=== PATIENT | female | born 1965 | race Caucasian/White ===

== ENCOUNTER 2017-10-26 08:58 | Observation (INO) | payer OTHER ==
--- NOTE | 2017-10-25 20:55 | PDGENHP ---
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 ~Angelenjoys cycling and walking. Sandra's~right~hip pain~started November 2016 after falling onto her right buttock, with~no~previous complaints. Angelhas~a known history of hip dysplasia. Sandra was referred by Dr. Mejia. Presentation today is of~anterior, posterior~right~hip pain.~~The hip~does~wake her~at night and~does~click and catch on her. Sitting~can be a real struggle~ for her.~Angeldoes not~report suffering from lower back pain episodes. Angelhas~participated in physical therapy (November-March 2017)~and has~ tried other conservative measures including cortisone~hip injection~(March 2017: no immediate relief, couple of weeks of relief)~, chiropractic treatments and massage therapy.~Kassi~has not~received sufficient symptomatic improvement. Angelhas~utilized medication for pain management, including intermittent~ NSAID and OTC acetaminophen.~Angelhas used medication since the pain began. Angeldenies issues with the left~hip. ~ Angelunderstands that she~has a hip and pelvis problem which should be researched and wishes to get a better understanding of her~hip status, followed by an establishment of a treatment strategy, hoping she~would be able to get back to her~well being active life. History: Past medical history:~~ MTHFR: a blood clotting disorder. Relevant familial history:~Grandmother, mother, sister clotting disorders. Past surgical history:~ No. Surgery Anesthesia 1 Left knee scope general 2 Left knee manipulation general 3 Left saphninous nerve release general Angeldenies problematic issues with general anesthesia in the past. I have reviewed, verified and agree with the past medical, surgical, family and social history. Current Medications:~has a current medication list which includes the following prescription(s): gabapentin, orlistat, loratadine, and naproxen sodium. ALLERGIES:~is allergic to no known drug allergies. Objective: Physical Examination: Angelis 5~feet 8~inches tall and weighs 175~Lbs. Angelis AAO x3; she~is well -nourished, in NAD. Skin is warm and dry. ~Breathing is non-labored. ~CV with RRR by pulse. Abdomen is soft, NTND. Currently,~she~walks with a normal~gait. Trendelenburg sign is~negative~and proprioception is reduced,~both~sides. She~presents with mild~signs of joint laxity. Beightons Score:~4 (knees and thumbs) Lower spine examination is~negative~for sciatic or femoral nerve irritation with negative~SLR &~femoral stretch tests. Range of motion of the spine is normal~for flexion, extension, and rotations, with~associated pain. Strength, Sensation and pulses are~normal -~bilaterally Ankles and knees exams are~normal~and no~mal-alignment is evident. She~has~right~0.5~cm short leg length discrepancy. Thigh circumference is~symmetric~with no evidence for muscle atrophy~on both~ sides. Hip ROM (degrees): FL ER At 90~hip FL IR At 90~hip FL AB AD EX IR Neutral hip ER Neutral hip R 110 55 50 40 5 10 55 20 L 110 50 40 40 5 20 55 30 Specific hip and pelvis tests: Impingement Test PAPITO Roll Add. Longus R +++ +++ + +++ L Negative Negative Negative Negative Glut. Med ITB Posterior Imp R Negative 5/5 strength Negative 5/5 strength Negative L Negative 5/5 strength Negative 5/5 strength Negative Squeeze test measured~normal Bony Symphysis pubis is~pain free~to touch while concentric activity of the rectus abdominis, does not~produce pain at its insertion. Ilio Psos specific tests are~positive for pain during cycling for~the right hip~ and remarkable for painful snap HF has~weak, some pain~the right hip. R posterior~capsule tenderness Greater trochanteric burse is~painful~on the right hip. Piriformis tests: FAIR is~negative,~with no~local signs of neuritis related to sciatic nerve. SIJs examination is~produces pain on~right side~with normal~PAPITO in relation and local tenderness. Hamstrings tests are~negative~functional contraction and negative~tendinopathy both hips. On a daily basis, the following percentages reflect~Sandra's overall total pain: Deep hip:~60% R GT:~10% R SIJ:~30% Imaging: Radiology studies which I have personally reviewed, analyzed and measured are below: XR: AP of the hip and pelvis: Performed in a~good~technique Coccyx to pubic symphysis distance~1.5~cm. 0~degrees [place] Lines are~preserved. Minimal~Pathological signs are seen in the Symphysis Pubis. Minimal~Pathological signs are seen at the Ischial tuberosity. ~ Specific measurements show: NSA~ LCE Sourcil~Angle Sharp's angle Lat. Cam Lat. Pincer C.Over~sign Head~Coverage % ATDmm R N 29 7 44 + - - 84 N L N 29 8 42 + - - 84 N Pos. wall sign ISS NAD ~~Dysplasia Comments R Negative Negative 27~mm + L Negative Negative 21~mm Negative Sclerosis Sup. Lat. OA Cysts Joint Space-WBZ Joint Space-Medial R Negative Negative Negative 4.8~mm 5.0~mm L Negative Negative Negative 5.1~mm 4.5~mm X Table lateral: Anterior cam lesion is~seen~on both hips. Alpha Angle: ~ Right~60~dergrees Left~55~degrees CT / 3D:~ MEASUREMENTS: Right hip: Lateral center edge angle: 30 degrees Anterior center edge angle: 44 degrees Equatorial acetabular version angle: 29 degrees Cranial acetabular version angle: 24 degrees Femoral neck shaft angle: 138 degrees Femoral neck version angle: 24 degrees anteverted. Right femoral torsion measures 48 degrees. COTAV - 77 Left hip: Lateral center edge angle: 31 degrees Anterior center edge angle: 49 degrees Equatorial acetabular version angle: 25 degrees Cranial acetabular version angle: 23 degrees Femoral neck shaft angle: 139 degrees Femoral neck version angle: 28 degrees. Left femoral torsion measures 38 degrees. MRI shows:~good cartilage quality, labral tear, no bone edema or cysts Impression and plan:~ Angelis a 52 y.o.~active female~suffering from symptomatic Right~hip pain due to Femoral~Antetorsion,~Femoroacetabular impingement (MARTHA)~Cam type,~with~ resultant labral tear, and~Right~Hip anterior under-coverage~~causing significant disability to~her~and altering her~sport and life activities. Physical examination, imaging, and~her~story correspond with the diagnosis mentioned above. I explained that femoral malrotation is a condition wherein the hip joint has excessive play~and instability due to the orientation of the femur bone or where the femur bone is rotated towards the back of the hip socket resulting in additional impingement pathology. This pathology ranges in severity with treatment options being specific to the nature of the problem. Left untreated, the ante-torsion related instability or the retro-torsion related impingement in the hip joint can cause progressive tearing of the labrum and deterioration of the surface cartilage, ultimately resulting in progressive osteoarthritis of the hip. ~ I explained that femoroacetabular impingement (MARTHA - Cam type) arises due to a bony or soft tissue conflict between the femur (ball) and acetabulum (socket) caused by an abnormality in the shape of the femoral head and neck. Over time, repetitive impingement can result in damage to the labrum and adjacent surface cartilage within the socket, ultimately giving rise to progressive osteoarthritis of the hip. ~ I explained that although a labral tear can be a source of pain, it is rarely the root of the problem and typically occurs secondary to an underlying abnormality in the shape and mechanics of the hip joint. ~ I reviewed conservative treatment options for Femoral malrotation and MARTHA including activity modification to avoid positions of impingement or instability , physical therapy, non-steroidal anti-inflammatory medications, and various injections (corticosteroid and PRP) aimed at reducing inflammation in the hip joint or/and preventing dynamic instability and impingement. PRP injections may promote healing and reduce symptoms in certain cases but it will not repair chronically damaged tissue. Although these measures may help to buy time~and reduce current level of symptoms, they are not a definitive solution to the problem given the underlying abnormality in the shape of the hip joint. ~ Patients who have failed conservative management and continue to experience symptoms are candidates for definitive surgical treatment, which may consist of hip arthroscopy alone or in combination with more invasive bony realignment procedures of the femur called derotational femoral osteotomy (DFO), where the femur bone is rotated to the normal anatomical range. ~ Hip arthroscopy typically includes treating the labrum with either repair or reconstruction of the torn labrum; as well as addressing the underlying abnormalities by restoring the normal shape to the hip joint. If the cartilage is damaged a Microfracture surgical procedure may also be necessary to help stimulate the growth of fibrocartilage. If a patient requires a labral reconstruction or a microfracture, the initial rehabilitation from the surgery may take longer, but the access registrar results are typically favorable. I reviewed the technical aspects of derotational femoral osteotomy (DFO) including risks, benefits, and expected course of recovery.~Angelunderstands that DFO is a minimally invasive inpatient procedure carried out through a small incision on the outer aspects of the hip joint. The femur bone is cut, realigned, and stabilized with a matthias. Risks, potential complications, side effects and recovery from surgical procedure were discussed in length.~Sandra~ understands that he/she will undergo hip arthroscopy 1 week prior to the DFO to address damage inside the hip joint to include labral repair and correction of Hip impingement. Angelwill review the info presented. Sandra will schedule with Dr. Mejia for a hip arthroscopy and followed a week later a Derotational Femoral Osteotomy~with us. At this stage, although she has moderate anterior acetabular under-coverage I believe that femoral osteotomy would be sufficient without a need for a JAVAN in addition to the DFO. Angelwill contact us if she~wishes to pursue further treatment in the future. Angelis happy with this plan. I have also supplied~her~with handouts, outlining the expected surgical treatment and rehab involved. I wish~Angelall the best, ~~ BRODY Mclean History Information - Allergies/Home Medication List Allergies/Adverse Reactions: No Known Allergies Allergy (Unverified 10/08/17 15:12) Home Medications: Adult One Daily Multivit Tab 10/08/17 [Last Taken Unknown] Claritin-D 24 Hour Tablet 10/08/17 [Last Taken Unknown] Gabapentin 10/08/17 [Last Taken Unknown] Lutein/Zeaxanthin 10/08/17 [Last Taken Unknown] I have personally reviewed and updated: medical history - Social History Smoking Status: Never smoked Review of Systems Review of Systems: Physical Exam Physical Exam:
[2017-10-26] MEDS ORDERED: PREGABALIN 150 MG CAP PO ONE (09:01)
[2017-10-26] MEDS ORDERED: ceFAZolin 2 GM/DEXTROSE 100 ML IV ONE (09:01)
[2017-10-26] MEDS ORDERED: ACETAMINOPHEN 500 MG TAB PO ONE (09:01)
[2017-10-26] MEDS ORDERED: EPINEPHrine 30 MG/30 ML MDV (0.1 MG/0.1 ML) ONE (09:02)
[2017-10-26] MEDS ORDERED: LR 1,000 ML IV ONE (09:02)
[2017-10-26] MEDS ORDERED: LIDOCAINE 1% 2 ML INJ ID PRN (09:02)
[2017-10-26] MEDS ORDERED: BUPIVACAINE 0.25% 30 ML SDV ONE (09:02)
[2017-10-26] MEDS ORDERED: MIDAZOLAM 2 MG/2 ML VIAL IVP ONE (09:38)
[2017-10-26] MEDS ORDERED: MIDAZOLAM 2 MG/2 ML VIAL ONE (09:39)
--- NOTE | 2017-10-26 09:39 | PDANEPAE ---
ANE Past Medical History - Cardiovascular History Hx Hypertension: No Hx Arrhythmias: No Hx Chest Pain: No Hx Coronary Artery / Peripheral Vascular Disease: No Hx CHF / Valvular Disease: No Hx Palpitations: No - Pulmonary History Hx COPD: No Hx Asthma/Reactive Airway Disease: No Hx Recent Upper Respiratory Infection: No Hx Oxygen in Use at Home: No Hx Sleep Apnea: No Sleep Apnea Screening Result - Last Documented: Negative Pulmonary History Comment: ASTHMA - CHILDHOOD - Neurologic History Hx Cerebrovascular Accident: No Hx Seizures: No Hx Dementia: No Neurologic History Comment: Nerve damage LLE after left knee scope. Has had saphenous nerve release but still has numbness, tingling, pain. Gabapentin helps. - Endocrine History Hx Diabetes: No - Renal History Hx Renal Disorders: No - Liver History Hx Hepatic Disorders: No - Neurological & Psychiatric Hx Hx Neurological and Psychiatric Disorders: No - Cancer History Hx Cancer: No - Congenital Disorder History Hx Congenital Disorders: No - GI History Hx Gastrointestinal Disorders: No - Other Health History Other Health History: NEG - Chronic Pain History Chronic Pain: Yes (L KNEE & LEG, R HIP) - Surgical History Prior Surgeries: TONSILLECTOMY. HYSTERECTOMY. L KNEE SCOPE. KNEE MANIPULATION. SAPHENOUS NERVE RELEASE ANE Review of Systems Review of Systems: - Exercise capacity METS (RN): 4 METS ANE Patient History - Allergies Allergies/Adverse Reactions: No Known Allergies Allergy (Unverified 10/08/17 15:12) - Home Medications Home Medications: Adult One Daily Multivit Tab 10/08/17 [Last Taken 10/20/17] Claritin-D 24 Hour Tablet 10/08/17 [Last Taken 10/26/17 07:00] Gabapentin 10/08/17 [Last Taken 10/26/17 07:00] Lutein/Zeaxanthin 10/08/17 [Last Taken 10/20/17] - NPO status NPO Since - Liquids (Date): 10/26/17 NPO Since - Liquids (Time): 07:15 NPO Since - Solids (Date): 10/25/17 NPO Since - Solids (Time): 17:00 - Smoking Hx Smoking Status: Never smoked - Family Anes Hx Family Hx Anesthesia Complications: none ANE Labs/Vital Signs - Vital Signs Height: 172.72 cm Weight: 79.379 kg ANE Physical Exam - Airway Neck exam: FROM Mallampati Score: Class 2 Mouth exam: normal dental/mouth exam - Pulmonary Pulmonary: no respiratory distress - Cardiovascular Cardiovascular: regular rate and rhythym - ASA Status ASA Status: II ANE Anesthesia Plan Anesthesia Plan: general endotracheal anesthesia
[2017-10-26] MEDS ORDERED: fentaNYL 250 MCG/5 ML INJ ONE (09:51)
[2017-10-26] MEDS ORDERED: PROPOFOL 200 MG/20 ML VIAL ONE (09:52)
[2017-10-26] MEDS ORDERED: ROCURONIUM 50 MG/5 ML VIAL ONE ×2 (13:20)
[2017-10-26] MEDS ORDERED: ONDANSETRON 4 MG/2 ML VIAL ONE (13:20)
[2017-10-26] MEDS ORDERED: DEXAMETHASONE 4 MG/ML VIAL ONE (13:21)
[2017-10-26] MEDS ORDERED: LIDOCAINE 2% 2 ML INJ ONE (13:21)
[2017-10-26] MEDS ORDERED: GLYCOPYRROLATE 0.2 MG/1 ML VIAL ONE ×2 (14:50)
[2017-10-26] MEDS ORDERED: NEOSTIGMINE METHYLSULFATE 5 MG/5 ML SYR ONE (14:50)
[2017-10-26] MEDS ORDERED: HYDROCODONE/APAP 5/325 TAB PO PRN (15:30)
[2017-10-26] MEDS ORDERED: PROMETHAZINE HCL 25 MG/ML INJ IVP PRN ×2 (15:30→17:30)
[2017-10-26] MEDS ORDERED: LR 500 ML IV PRN (15:30)
[2017-10-26] MEDS ORDERED: NALOXONE HCL 0.4 MG/ML INJ IVP PRN (15:30)
[2017-10-26] MEDS ORDERED: fentaNYL 100 MCG/2 ML INJ IVP PRN (15:30)
--- NOTE | 2017-10-26 15:31 | POSTANESTH ---
Post Anesthetic Evaluation Cardiovascular Status: Normal, Stable Respiratory Status: Normal, Stable Level of Consciousness/Mental Status: Can Participate in Eval Pain Control: Adequate, Prn Tx Ordered Nausea/Vomiting Control: Adequate, Prn Tx Ordered Complications Possibly Related to Anesthesia: None Noted
[2017-10-26] MEDS ORDERED: fentaNYL 100 MCG/2 ML INJ ONE (15:34)
[2017-10-26] MEDS ORDERED: HYDROCODONE/APAP 5/325 TAB ONE (16:25)
[2017-10-26] MEDS ORDERED: TEMAZEPAM 15 MG CAP PO PRN (17:30)
[2017-10-26] MEDS ORDERED: KETOROLAC 15 MG/1 ML SDV IVP ONE (17:30)
[2017-10-26] MEDS ORDERED: ONDANSETRON 4 MG/2 ML VIAL IVP PRN (17:30)
[2017-10-26] MEDS ORDERED: ONDANSETRON DISINTEGRATING 4 MG TAB PO PRN (17:30)
[2017-10-26] MEDS ORDERED: HYDROmorphONE/DILAUDID 1 MG/ML INJ IVP PRN (17:30)
[2017-10-26] MEDS ORDERED: KETOROLAC 15 MG/1 ML SDV ONE (17:38)
[2017-10-26] MEDS: oxyCODONE IR 5 MG TAB PO PRN ×2 (18:44→23:25)
[2017-10-26] MEDS: HYDROmorphone HCL 0.5 MG/0.5 ML SYR IVP PRN (21:07)
[2017-10-27] MEDS: HYDROmorphone HCL 0.5 MG/0.5 ML SYR IVP PRN ×3 (01:08→06:31)
[2017-10-27] MEDS: oxyCODONE IR 5 MG TAB PO PRN ×3 (03:30→12:03)
[2017-10-27 07:55] VITALS: BP 113/77
== END 2017-10-27 12:52 | disposition home or self-care (01) ==
LOC: FSGY 08:58 → F3E 17:30 → F3N 18:00
PROVIDERS: ADMIT Orthopaedic Surgery Sports Medicine; ATTEND Orthopaedic Surgery Sports Medicine
DX: M25.851 Other specified joint disorders, right hip (principal); M25.852 Other specified joint disorders, left hip; Q65.89 Other specified congenital deformities of hip; E72.12 Methylenetetrahydrofolate reductase deficiency
CPT/HCPCS: 29914; 29916; 76001; G0378; C1713; J0171; J0690; J1100; J1170; J1885; J2250; J2405; J2704; J2710; J3010

== ENCOUNTER 2017-11-02 09:16 | Inpatient (IN) | payer OTHER ==
--- NOTE | 2017-11-01 20:44 | PDGENHP ---
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 ~Angelenjoys cycling and walking. Sandra's~right~hip pain~started November 2016 after falling onto her right buttock, with~no~previous complaints. Angelhas~a known history of hip dysplasia. Sandra was referred by Dr. Mejia. Presentation today is of~anterior, posterior~right~hip pain.~~The hip~does~wake her~at night and~does~click and catch on her. Sitting~can be a real struggle~ for her.~Angeldoes not~report suffering from lower back pain episodes. Angelhas~participated in physical therapy (November-March 2017)~and has~ tried other conservative measures including cortisone~hip injection~(March 2017: no immediate relief, couple of weeks of relief)~, chiropractic treatments and massage therapy.~Kassi~has not~received sufficient symptomatic improvement. Angelhas~utilized medication for pain management, including intermittent~ NSAID and OTC acetaminophen.~Angelhas used medication since the pain began. Angeldenies issues with the left~hip. ~ Angelunderstands that she~has a hip and pelvis problem which should be researched and wishes to get a better understanding of her~hip status, followed by an establishment of a treatment strategy, hoping she~would be able to get back to her~well being active life. History: Past medical history:~~ MTHFR: a blood clotting disorder. Relevant familial history:~Grandmother, mother, sister clotting disorders. Past surgical history:~ No. Surgery Anesthesia 1 Left knee scope general 2 Left knee manipulation general 3 Left saphninous nerve release general Angeldenies problematic issues with general anesthesia in the past. I have reviewed, verified and agree with the past medical, surgical, family and social history. Current Medications:~has a current medication list which includes the following prescription(s): gabapentin, orlistat, loratadine, and naproxen sodium. ALLERGIES:~is allergic to no known drug allergies. Objective: Physical Examination: Angelis 5~feet 8~inches tall and weighs 175~Lbs. Angelis AAO x3; she~is well -nourished, in NAD. Skin is warm and dry. ~Breathing is non-labored. ~CV with RRR by pulse. Abdomen is soft, NTND. Currently,~she~walks with a normal~gait. Trendelenburg sign is~negative~and proprioception is reduced,~both~sides. She~presents with mild~signs of joint laxity. Beightons Score:~4 (knees and thumbs) Lower spine examination is~negative~for sciatic or femoral nerve irritation with negative~SLR &~femoral stretch tests. Range of motion of the spine is normal~for flexion, extension, and rotations, with~associated pain. Strength, Sensation and pulses are~normal -~bilaterally Ankles and knees exams are~normal~and no~mal-alignment is evident. She~has~right~0.5~cm short leg length discrepancy. Thigh circumference is~symmetric~with no evidence for muscle atrophy~on both~ sides. Hip ROM (degrees): FL ER At 90~hip FL IR At 90~hip FL AB AD EX IR Neutral hip ER Neutral hip R 110 55 50 40 5 10 55 20 L 110 50 40 40 5 20 55 30 Specific hip and pelvis tests: Impingement Test PAPITO Roll Add. Longus R +++ +++ + +++ L Negative Negative Negative Negative Glut. Med ITB Posterior Imp R Negative 5/5 strength Negative 5/5 strength Negative L Negative 5/5 strength Negative 5/5 strength Negative Squeeze test measured~normal Bony Symphysis pubis is~pain free~to touch while concentric activity of the rectus abdominis, does not~produce pain at its insertion. Ilio Psos specific tests are~positive for pain during cycling for~the right hip~ and remarkable for painful snap HF has~weak, some pain~the right hip. R posterior~capsule tenderness Greater trochanteric burse is~painful~on the right hip. Piriformis tests: FAIR is~negative,~with no~local signs of neuritis related to sciatic nerve. SIJs examination is~produces pain on~right side~with normal~PAPTIO in relation and local tenderness. Hamstrings tests are~negative~functional contraction and negative~tendinopathy both hips. On a daily basis, the following percentages reflect~Sandra's overall total pain: Deep hip:~60% R GT:~10% R SIJ:~30% Imaging: Radiology studies which I have personally reviewed, analyzed and measured are below: XR: AP of the hip and pelvis: Performed in a~good~technique Coccyx to pubic symphysis distance~1.5~cm. 0~degrees [place] Lines are~preserved. Minimal~Pathological signs are seen in the Symphysis Pubis. Minimal~Pathological signs are seen at the Ischial tuberosity. ~ Specific measurements show: NSA~ LCE Sourcil~Angle Sharp's angle Lat. Cam Lat. Pincer C.Over~sign Head~Coverage % ATDmm R N 29 7 44 + - - 84 N L N 29 8 42 + - - 84 N Pos. wall sign ISS NAD ~~Dysplasia Comments R Negative Negative 27~mm + L Negative Negative 21~mm Negative Sclerosis Sup. Lat. OA Cysts Joint Space-WBZ Joint Space-Medial R Negative Negative Negative 4.8~mm 5.0~mm L Negative Negative Negative 5.1~mm 4.5~mm X Table lateral: Anterior cam lesion is~seen~on both hips. Alpha Angle: ~ Right~60~dergrees Left~55~degrees CT / 3D:~ MEASUREMENTS: Right hip: Lateral center edge angle: 30 degrees Anterior center edge angle: 44 degrees Equatorial acetabular version angle: 29 degrees Cranial acetabular version angle: 24 degrees Femoral neck shaft angle: 138 degrees Femoral neck version angle: 24 degrees anteverted. Right femoral torsion measures 48 degrees. COTAV - 77 Left hip: Lateral center edge angle: 31 degrees Anterior center edge angle: 49 degrees Equatorial acetabular version angle: 25 degrees Cranial acetabular version angle: 23 degrees Femoral neck shaft angle: 139 degrees Femoral neck version angle: 28 degrees. Left femoral torsion measures 38 degrees. MRI shows:~good cartilage quality, labral tear, no bone edema or cysts Impression and plan:~ Angelis a 52 y.o.~active female~suffering from symptomatic Right~hip pain due to Femoral~Antetorsion,~Femoroacetabular impingement (MARTHA)~Cam type,~with~ resultant labral tear, and~Right~Hip anterior under-coverage~~causing significant disability to~her~and altering her~sport and life activities. Physical examination, imaging, and~her~story correspond with the diagnosis mentioned above. I explained that femoral malrotation is a condition wherein the hip joint has excessive play~and instability due to the orientation of the femur bone or where the femur bone is rotated towards the back of the hip socket resulting in additional impingement pathology. This pathology ranges in severity with treatment options being specific to the nature of the problem. Left untreated, the ante-torsion related instability or the retro-torsion related impingement in the hip joint can cause progressive tearing of the labrum and deterioration of the surface cartilage, ultimately resulting in progressive osteoarthritis of the hip. ~ I explained that femoroacetabular impingement (MARTHA - Cam type) arises due to a bony or soft tissue conflict between the femur (ball) and acetabulum (socket) caused by an abnormality in the shape of the femoral head and neck. Over time, repetitive impingement can result in damage to the labrum and adjacent surface cartilage within the socket, ultimately giving rise to progressive osteoarthritis of the hip. ~ I explained that although a labral tear can be a source of pain, it is rarely the root of the problem and typically occurs secondary to an underlying abnormality in the shape and mechanics of the hip joint. ~ I reviewed conservative treatment options for Femoral malrotation and MARTHA including activity modification to avoid positions of impingement or instability , physical therapy, non-steroidal anti-inflammatory medications, and various injections (corticosteroid and PRP) aimed at reducing inflammation in the hip joint or/and preventing dynamic instability and impingement. PRP injections may promote healing and reduce symptoms in certain cases but it will not repair chronically damaged tissue. Although these measures may help to buy time~and reduce current level of symptoms, they are not a definitive solution to the problem given the underlying abnormality in the shape of the hip joint. ~ Patients who have failed conservative management and continue to experience symptoms are candidates for definitive surgical treatment, which may consist of hip arthroscopy alone or in combination with more invasive bony realignment procedures of the femur called derotational femoral osteotomy (DFO), where the femur bone is rotated to the normal anatomical range. ~ Hip arthroscopy typically includes treating the labrum with either repair or reconstruction of the torn labrum; as well as addressing the underlying abnormalities by restoring the normal shape to the hip joint. If the cartilage is damaged a Microfracture surgical procedure may also be necessary to help stimulate the growth of fibrocartilage. If a patient requires a labral reconstruction or a microfracture, the initial rehabilitation from the surgery may take longer, but the intermediate school teacher results are typically favorable. I reviewed the technical aspects of derotational femoral osteotomy (DFO) including risks, benefits, and expected course of recovery.~Angelunderstands that DFO is a minimally invasive inpatient procedure carried out through a small incision on the outer aspects of the hip joint. The femur bone is cut, realigned, and stabilized with a matthias. Risks, potential complications, side effects and recovery from surgical procedure were discussed in length.~Sandra~ understands that he/she will undergo hip arthroscopy 1 week prior to the DFO to address damage inside the hip joint to include labral repair and correction of Hip impingement. Angelwill review the info presented. Sandra will schedule with Dr. Mejia for a hip arthroscopy and followed a week later a Derotational Femoral Osteotomy~with us. At this stage, although she has moderate anterior acetabular under-coverage I believe that femoral osteotomy would be sufficient without a need for a JAVAN in addition to the DFO. Angelwill contact us if she~wishes to pursue further treatment in the future. Angelis happy with this plan. I have also supplied~her~with handouts, outlining the expected surgical treatment and rehab involved. I wish~Angelall the best, ~~ BRODY Mclean History Information - Allergies/Home Medication List Allergies/Adverse Reactions: No Known Allergies Allergy (Verified 10/26/17 21:52) Home Medications: Gabapentin [Neurontin 300 MG (*)] 900 mg PO TID 10/26/17 [Last Taken 10/26/17 08 :00] Loratadine/Pseudoephedrine [Claritin-D 24 Hour Tablet] 1 each PO DAILY 10/26/17 [Last Taken 10/26/17] I have personally reviewed and updated: medical history - Social History Smoking Status: Never smoked Review of Systems Review of Systems: Physical Exam Physical Exam:
[2017-11-02] MEDS ORDERED: PREGABALIN 150 MG CAP PO ONE (10:04)
[2017-11-02] MEDS ORDERED: SCOPOLAMINE HYDROBROMIDE 1 MG/3 DAYS PATCH TD ONE (10:04)
[2017-11-02] MEDS ORDERED: TRANEXAMIC ACID 1,000 MG in NS 100 ML IV ONE (10:04)
[2017-11-02] MEDS ORDERED: ceFAZolin 2 GM/DEXTROSE 100 ML IV ONE (10:04)
[2017-11-02] MEDS ORDERED: ACETAMINOPHEN 500 MG TAB PO ONE (10:04)
[2017-11-02] MEDS ORDERED: LR 1,000 ML IV ONE (10:06)
[2017-11-02] MEDS ORDERED: BUPIVACAINE 0.25% 30 ML SDV ONE (11:20)
[2017-11-02] MEDS ORDERED: EPINEPHrine 1 MG/ML INJ ONE (11:20)
[2017-11-02] MEDS ORDERED: BUPIVACAINE/DEXTROSE 7.5MG/ML 2 ML SPINAL AMP SP ONE (12:24)
[2017-11-02] MEDS ORDERED: MIDAZOLAM 2 MG/2 ML VIAL IVP ONE (12:26)
[2017-11-02] MEDS ORDERED: MIDAZOLAM 2 MG/2 ML VIAL ONE (12:28)
--- NOTE | 2017-11-02 12:29 | PDANEPAE ---
ANE Past Medical History - Cardiovascular History Hx Hypertension: No Hx Arrhythmias: No Hx Chest Pain: No Hx Coronary Artery / Peripheral Vascular Disease: No Hx CHF / Valvular Disease: No Hx Palpitations: No - Pulmonary History Hx COPD: No Hx Asthma/Reactive Airway Disease: No Hx Recent Upper Respiratory Infection: No Hx Oxygen in Use at Home: No Hx Sleep Apnea: No Sleep Apnea Screening Result - Last Documented: Negative Pulmonary History Comment: ASTHMA - CHILDHOOD - Neurologic History Hx Cerebrovascular Accident: No Hx Seizures: No Hx Dementia: No Neurologic History Comment: Nerve damage LLE after left knee scope. Has had saphenous nerve release but still has numbness, tingling, pain. Gabapentin helps. - Endocrine History Hx Diabetes: No Hypothyroid: No Hyperthyroid: No Obesity: no - Renal History Hx Renal Disorders: No - Liver History Hx Hepatic Disorders: No - Neurological & Psychiatric Hx Hx Neurological and Psychiatric Disorders: No - Cancer History Hx Cancer: No - Congenital Disorder History Hx Congenital Disorders: No - GI History Hx Gastrointestinal Disorders: No - Other Health History Other Health History: NEG - Chronic Pain History Chronic Pain: Yes (L KNEE & LEG, R HIP) - Surgical History Prior Surgeries: TONSILLECTOMY. HYSTERECTOMY. L KNEE SCOPE. KNEE MANIPULATION. SAPHENOUS NERVE RELEASE ANE Review of Systems Review of Systems: - Exercise capacity METS (RN): 4 METS ANE Patient History - Allergies Allergies/Adverse Reactions: No Known Allergies Allergy (Verified 10/26/17 21:52) - Home Medications Home Medications: Gabapentin [Neurontin 300 MG (*)] 900 mg PO TID 10/26/17 [Last Taken 11/02/17 06 :00] Loratadine/Pseudoephedrine [Claritin-D 24 Hour Tablet] 1 each PO DAILY 10/26/17 [Last Taken 11/02/17 06:00] Naproxen 11/02/17 [Last Taken 10/30/17] Valium 5 MG (*) 11/02/17 [Last Taken 10/31/17] oxyCODONE IR 11/02/17 [Last Taken 11/01/17] - NPO status NPO Since - Liquids (Date): 11/02/17 NPO Since - Liquids (Time): 06:30 NPO Since - Solids (Date): 11/01/17 NPO Since - Solids (Time): 17:00 - Smoking Hx Smoking Status: Never smoked - Family Anes Hx Family Hx Anesthesia Complications: none ANE Labs/Vital Signs - Labs Result Diagrams: 11/02/17 11:04 - Vital Signs Blood Pressure: 152/102 Heart Rate: 86 Respiratory Rate: 18 O2 Sat (%): 95 Height: 172.72 cm Weight: 79.379 kg ANE Physical Exam - Airway Neck exam: FROM Mallampati Score: Class 1 Mouth exam: normal dental/mouth exam - Pulmonary Pulmonary: no respiratory distress - Cardiovascular Cardiovascular: regular rate and rhythym - ASA Status ASA Status: I ANE Anesthesia Plan Anesthesia Plan: general endotracheal anesthesia, spinal
[2017-11-02] MEDS ORDERED: PROPOFOL 200 MG/20 ML VIAL ONE (12:47)
[2017-11-02] MEDS ORDERED: fentaNYL 250 MCG/5 ML INJ ONE (12:47)
[2017-11-02] MEDS ORDERED: morphINE PF 5 MG/10 ML INJ ONE (12:47)
[2017-11-02 12:54] LABS: INR 0.95 (0.83-1.16); PROTIME(PATIENT) 12.9 SEC (12.0-15.0)
[2017-11-02] MEDS ORDERED: ONDANSETRON 4 MG/2 ML VIAL ONE (12:57)
[2017-11-02] MEDS ORDERED: ROCURONIUM 100 MG/10 ML VIAL ONE (12:57)
[2017-11-02] MEDS ORDERED: DEXAMETHASONE 4 MG/ML VIAL ONE (12:57)
[2017-11-02] MEDS ORDERED: ePHEDrine SULFATE 25 MG/5 ML SYR ONE (13:43)
[2017-11-02] MEDS ORDERED: GLYCOPYRROLATE 0.2 MG/1 ML VIAL ONE (13:43)
[2017-11-02] MEDS ORDERED: HYDROCODONE/APAP 5/325 TAB PO PRN (15:49)
[2017-11-02] MEDS ORDERED: ONDANSETRON 4 MG/2 ML VIAL IVP PRN ×3 (15:49→17:20)
[2017-11-02] MEDS ORDERED: PROMETHAZINE HCL 25 MG/ML INJ IVP PRN (15:49)
[2017-11-02] MEDS ORDERED: LABETALOL HCL 5 MG/ML 20 ML MDV IVP PRN (15:49)
[2017-11-02] MEDS ORDERED: fentaNYL 100 MCG/2 ML INJ IVP PRN (15:49)
[2017-11-02] MEDS ORDERED: NALOXONE HCL 0.4 MG/ML INJ IVP PRN ×2 (15:49→17:20)
[2017-11-02] MEDS ORDERED: BISACODYL 10 MG SUPP PR PRN (17:16)
[2017-11-02] MEDS ORDERED: POLYETHYLENE GLYCOL 3350 17 GM PKT PO PRN (17:16)
[2017-11-02] MEDS ORDERED: MAGNESIUM HYDROXIDE 30 ML UDCUP PO PRN (17:16)
[2017-11-02] MEDS ORDERED: ACETAMINOPHEN 325 MG TAB PO PRN (17:16)
[2017-11-02] MEDS ORDERED: ONDANSETRON DISINTEGRATING 4 MG TAB PO PRN (17:16)
[2017-11-02] MEDS ORDERED: LACTULOSE 20 GM/30 ML UDCUP PO PRN (17:16)
[2017-11-02] MEDS ORDERED: METOCLOPRAMIDE 10 MG/2 ML VIAL IVP PRN (17:20)
[2017-11-02] MEDS ORDERED: diphenhydrAMINE 25 MG CAP PO PRN (17:20)
[2017-11-02] MEDS ORDERED: HYDROmorphONE/DILAUDID 6 MG/30 ML PCA IV PRN (17:20)
[2017-11-02] MEDS ORDERED: oxyCODONE IR 5 MG TAB PO PRN (17:20)
[2017-11-02] MEDS ORDERED: NS 1,000 ML IV SCH (17:30)
[2017-11-02] MEDS ORDERED: oxyCODONE IR 5 MG TAB ONE (17:46)
[2017-11-02] MEDS: DIAZEPAM 2 MG TAB PO PRN ×2 (17:50→23:58)
[2017-11-02] MEDS: oxyCODONE IR 5 MG TAB PO SCH ×2 (17:50→21:53)
[2017-11-02] MEDS ORDERED: oxyCODONE IR 15 MG TAB PO SCH (18:00)
--- NOTE | 2017-11-02 20:40 | SUROPNOTE ---
[facility] Operative Report - Surgery Surgery was performed at [facility] on~11/02/17~ ~~ OPERATION NOTE~on Sandra Sandoval Diagnosis:Right~Borderline Hip Dyplasia Indication:~Failure to obtain satisfactory results with long standing conservative measures. Surgeon: Clint Geller MD Surveillance Sensor Operator:~Ekta Aranda MD Anaesthetic:~General Operation: Open~right~derotational femoral osteotomy Procedure:~Sandra~was positioned supine on a distraction table, with the legs in a scissors position (operated leg leveled, contra-lateral leg hyperextended) so fluoroscopy could obtain both AP and lateral views. A 4~cm incision was made proximal to the greater trochanter (GT). Using a drill guide and a drill, an entry point was established at the tip of the GT followed by introduction of ball-tip guide wire~introduced through the femoral canal. ~~After measurements of required nail length and width, rimming was performed to~12.5~mm (in 0.5 mm increments) distal to the femoral isthmus. Rimming to~14~mm was performed~to the level of the area of the planned osteotomy. An intramedullary saw (12~mm) was introduced into the femoral canal,~5~cm below the lesser trochanter. In small increments, the medullary saw performed a circumferential inside out cut through the femur. This cut was completed in an outside-in manner using a~4~mm osteotome. Just before the osteotomy was complete and displacement was confirmed with fluoroscopy, 2 Bryant pins were drilled~into the femur bone ( one to the lateral GT, one to the supra-condylar region of the distal femur). Using fluoroscopic guidance the angle between the Bryant pins~as measured with a goniometer~and boot scale, the varus and derotational osteotomy was performed by rotating the foot outward. The correction planned and obtained was approximately~30~degrees external rotation (internal rotation of the femur to a relative retroverted torsion). A 10~mm~diameter/ 360~mm length inflatable nail was introduced into the femoral canal and was inflated with saline to obtain good intra-medullary purchase. Post-operative X-rays were obtained to confirm position and location of nail. Bryant pins were removed,~ITB was approximated , and sub-cutis and skin layers were closed with absorbable suture/nylon/ stables. After surgery,~Sandra~moved both lower limbs and had no NV compromise. ROM in neutral hip corresponded well with the torsion change.~ Specimen - none Bleeding -~100ml Complication - none Evaluation under Anesthesia: Pre: IR90 ER90 ABD Flexion Right 45 50 40 105 Left 40 50 40 110 Post: IR 90 Right 15 Post op instructions: 1.~Toe touch~bearing crutches for 6 weeks 2. Pain killers as prescribed 3. Follow up visit with me, as scheduled, where a rehab protocol would be discussed 4. Avoid hip external rotation for 4 weeks 5. Continuous SCDs~ Kind regards, Dr. Clint Geller .
[2017-11-02] MEDS: SENNOSIDES/DOCUSATE SODIUM TAB PO SCH (20:43)
--- NOTE | 2017-11-02 23:50 | PDHOSCONS ---
History and Physical - Chief Complaint consult [facility]. - History of Present Illness Source-patient provides history appears reliable. EMR was reviewed. HPI- this is a pleasant 52-year-old female with past medical history significant for right hip dysplasia status post right arthroscopy for labrum repair 1 week ago and now status post right D rotational osteotomy. Dr. Santy Del Castillo requested consultation to assist with medical management. Patient with past medical history significant for MTHFR. She has no previous history of coagulopathy. She has had multiple surgeries and done well each time. Patient currently denies any fevers or chills. She did have some postoperative nausea which has resolved. Her pain is relatively well controlled and she is requesting her evening gabapentin dose tonight. Patient also notes that she feels like her bladder is distended despite drinking 3x550 cc water jugs. Patient reports that she had her Bryant catheter emptied before she arrived to the floor and has not had any urine output since that time. History Information - Allergies/Home Medication List Allergies/Adverse Reactions: No Known Allergies Allergy (Verified 11/02/17 17:49) Home Medications: Gabapentin [Neurontin 300 MG (*)] 900 mg PO TID 10/26/17 [Last Taken 10/26/17 08 :00] Loratadine/Pseudoephedrine [Claritin-D 24 Hour Tablet] 1 each PO DAILY 10/26/17 [Last Taken 10/26/17] I have personally reviewed and updated: family history, medical history, social history, surgical history - Past Medical History Additional medical history: MTHFR, patient without any previous history of DVT. She does report a history of a superficial thrombus at an IV site. Right hip dysplasia. Recent development of rash since her surgery last week on her abdomen and right leg - Surgical History Additional surgical history: Left knee arthroscopy. Vaginal hysterectomy ( ovaries intact). Steroid injection in the right hip. Right hip arthroscopy for labrum repair. Right hip D rotational osteotomy - Family History Additional family history: Maternal grandmother - DVT. Mother - DVT. Sister - DVT and PE. Factor 5 Leiden deficiency homocystinuria protein C or S deficiency - Social History Smoking Status: Never smoked Alcohol Use: Heavy (Patient notes that she was previously a social drinker and more recently in the last several weeks she has been drinking 3-4 drinks at night to help with pain. Her last drink was approximately 1 week ago) Drug Use: None Review of Systems Review of Systems: ROS: 10pt was reviewed & negative except for what was stated in HPI & below Constitutional: Denies: chills, fever Gastrointestinal: Reports: nausea. Denies: vomitting Genitourinary: Reports: other (Bladder distension, Bryant catheter in place) Muscolosketal: Reports: joint pain (Right hip) Skin: Reports: rash (See HPI) Neurological: Reports: no symptoms. Denies: emotional problems, numbness, tingling, tremors, weakness Physical Exam Physical Exam: Temp Pulse Resp BP Pulse Ox 36.0 C 74 16 127/83 H 97 11/02/17 23:29 11/02/17 23:29 11/02/17 23:29 11/02/17 23:29 11/02/17 23:29 Constitutional: no apparent distress, appears nourished, other (NAD. Pleasant adult female is resting comfortably in bed. She does appear little fatigued but she is pleasant and cooperative.) Eyes: PERRL (Slightly decreased reactivity to light bilaterally but symmetric.) , anicteric sclera, EOMI, No scleral injection Ears, Nose, Mouth, Throat: moist mucous membranes, other (No nasal discharge.), No poor dentition Cardiovascular: regular rate and rhythym, no murmur, rub, or gallop, pulses symmetric bilaterally, No edema Peripheral Pulses: 1+: dorsalis-pedis (R), dorsalis-pedis (L) Respiratory: no respiratory distress, no rales or rhonchi, clear to auscultation Gastrointestinal: normoactive bowel sounds, soft, non-tender abdomen, no palpable masses, No distension Genitourinary: bryant in urethra, No no bladder fullness Skin: warm, normal color, rash (Abdomen and right leg, almost a fine palpable purpuric type rash that appears to be resolving.) Musculoskeletal: other (Exam limited secondary to patient's postop status. She is able to move her distal lower extremities and upper extremities. Right hip bandaged. Bruising present in various stages of healing.), No generalized weakness Neurologic: AAOx3, sensation intact bilaterally, other (Grossly nonfocal exam.) , No facial droop Psychiatric: interacting appropriately, not anxious, not encephalopathic, thought process linear, other (Pleasant and cooperative. Patient in good spirits.) Lab Data & Imaging Review 11/02/17 11:04 WBC 5.85 10^3/uL (3.80-9.50) 11/02/17 11:04 RBC 4.51 10^6/uL (4.18-5.33) 11/02/17 11:04 Hgb 13.9 g/dL (12.6-16.3) 11/02/17 11:04 Hct 41.3 % (38.0-47.0) 11/02/17 11:04 MCV 91.6 fL (81.5-99.8) 11/02/17 11:04 MCH 30.8 pg (27.9-34.1) 11/02/17 11:04 MCHC 33.7 g/dL (32.4-36.7) 11/02/17 11:04 RDW 13.0 % (11.5-15.2) 11/02/17 11:04 Plt Count 387 10^3/uL (150-400) 11/02/17 11:04 PT 12.9 SEC (12.0-15.0) 11/02/17 12:25 INR 0.95 (0.83-1.16) 11/02/17 12:25 APTT 29.2 SEC (23.0-38.0) 11/02/17 12:25 Assessment & Plan Assessment: Pleasant 52-year-old female with history of MTHFR and right hip dysplasia now POD # 0 right Derotational osteotomy. Hospitalist consult to assist with medical management. Chronic pain with acute postop pain - continue patient's gabapentin which has been ordered for this evening. Patient has available Tylenol, Oxy IR, Dilaudid [employer]. Patient appears to be comfortable. History of MTHFR - patient without any previous history of coagulopathy. She is not on any antiplatelet or anticoagulation at baseline. She has not had any complications postoperatively for her other surgeries. Currently just has 81 mg aspirin ordered. Defer to primary team has for considerations of anticoagulation. Urinary retention - patient has been able to tolerate 1500 mL plus of oral fluids. She does have some bladder distension and bladder scan at bedside did show retention of 251 mL despite a Bryant catheter in place. Discussed with nurse for repositioning of the catheter to ensure adequate drainage. FEN - tolerating PO with advancing diet. PPX - SCDs. as per primary team. encourage early mobilization vs consideration for ppx anticoagulation. Thank you for this consultation, we will follow along with you in a.m.
[2017-11-02] MEDS: GABAPENTIN 300 MG CAP PO SCH (23:59)
[2017-11-03] MEDS: oxyCODONE IR 5 MG TAB PO SCH ×6 (02:08→21:41)
[2017-11-03] MEDS: PANTOPRAZOLE SODIUM 40 MG TAB PO SCH (09:46)
[2017-11-03] MEDS: GABAPENTIN 300 MG CAP PO SCH ×3 (09:46→21:40)
[2017-11-03] MEDS: SENNOSIDES/DOCUSATE SODIUM TAB PO SCH ×2 (09:47→21:41)
[2017-11-03] MEDS: CETIRIZINE 10 MG TAB PO SCH (09:47)
[2017-11-03] MEDS: DIAZEPAM 2 MG TAB PO PRN (11:57)
--- NOTE | 2017-11-03 12:00 | PDMN ---
Medical Necessity Medical necessity: [facility] Musculoskeletal Surgery or Procedure: 52 yo s/p R derotational femoral osteotomy, MC IP only
--- NOTE | 2017-11-03 13:31 | HOSPPROG ---
Hospitalist Progress Note Assessment/Plan: [place] 52-year-old female with history of MTHFR and right hip dysplasia. She is s/p a right Derotational osteotomy. Hospitalist consult to assist with medical management. *Chronic pain with acute postop pain -resumed gabapentin -cont prn medications -pain is managed during my evaluation *History of MTHFR -patient without any previous history of coagulopathy -she in on asa 81 mg daily -no complications postoperatively from her other surgeries. -Defer to primary team has for considerations of anticoagulation. *Urinary retention -resolved *rash -located where the Betadine was applied (listed as an allergy) -asked nursing staff to wash off -Pepcid and topical Benadryl *hyperkalemia -mild, recheck in a.m. *right hip dysplasia -pod #1 for derotational osteotomy *PPX - SCDs. as per primary team. encourage early mobilization vs consideration for ppx anticoagulation. *Plan: recheck labs in a.m.,iv Pepcid and topical Benadryl for rash Subjective: Sandra said her pain is well managed. Objective: Vital Signs Temp Pulse Resp BP Pulse Ox 36.6 C 63 14 131/84 H 100 11/03/17 12:00 11/03/17 12:00 11/03/17 12:00 11/03/17 12:00 11/03/17 12:00 Laboratory Results 11/03/17 05:05 11/03/17 05:05 11/02/17 11/03/17 11/04/17 05:59 05:59 05:59 Intake Total 2300 Output Total 1150 1500 Balance 1150 -1500 PT 12.9 SEC (12.0-15.0) 11/02/17 12:25 INR 0.95 (0.83-1.16) 11/02/17 12:25 - Physical Exam Constitutional: no apparent distress, appears nourished, not in pain Eyes: PERRL Ears, Nose, Mouth, Throat: hearing normal Cardiovascular: regular rate and rhythym Respiratory: no respiratory distress Gastrointestinal: normoactive bowel sounds Skin: warm, rash (scattered red puritic rash on right thigh, calf, abdomen area (all of these areas have betadyne)) Neurologic: AAOx3 Psychiatric: interacting appropriately ICD10 Worksheet Patient Problems: Problems Problem Status Onset Rash and nonspecific skin eruption Acute - ICD10 Problem Qualifiers (1) Rash and nonspecific skin eruption
--- NOTE | 2017-11-03 14:43 | ASMTCMCOM ---
CM Note CM Note Notes: Pt had planned surgery for hip dysplagia. Pt resides with spouse. OT rec home, PT rec outpatient. Pt to follow MD rec for outpatient PT. CM available for d/c needs. D/c plan of care: Independent Date Signed: 11/03/2017 02:42 PM Electronically Signed By:DELIA Arteaga
[2017-11-03] MEDS ORDERED: DIPHENHYDRAMINE CREAM TP PRN (15:04)
[2017-11-03] MEDS: oxyCODONE IR 5 MG TAB PO PRN (17:05)
[2017-11-03] MEDS ORDERED: NALOXONE HCL 0.4 MG/ML INJ IVP PRN (19:40)
[2017-11-03] MEDS ORDERED: HYDROmorphONE/DILAUDID 6 MG/30 ML PCA IV PRN (19:41)
--- NOTE | 2017-11-03 19:45 | SOAPPROG ---
SOAP Progress Note Assessment/Plan: Assessment: 1 day post op Right Periacetabular Osteotomy Plan: Start [employer] tonight Oxycodone up with PT/OT Pelvis/Femur xray on POD#3 Benadryl cream for rash 11/03/17 19:41 Subjective: Sandra was doing quite well until this afternoon in terms of pain, this evening it has become increased. She denies any cp, sob or nausea. The Atkins is out and she has been up to the bathroom. Objective: Vital Signs Temp Pulse Resp BP Pulse Ox 36.6 C 69 14 136/88 H 91 L 11/03/17 15:40 11/03/17 15:40 11/03/17 15:40 11/03/17 15:40 11/03/17 15:40 Laboratory Results 11/03/17 05:05 11/03/17 05:05 11/02/17 11/03/17 11/04/17 05:59 05:59 05:59 Intake Total 2300 500 Output Total 1150 1750 Balance 1150 -1250 PT 12.9 SEC (12.0-15.0) 11/02/17 12:25 INR 0.95 (0.83-1.16) 11/02/17 12:25 Well appearing in NAD Right hip/leg: ecchymosis and edema hip scope dressings slightly wet with serosang fluid NVI distally FUll ROM of foot and ankle ICD10 Worksheet Patient Problems: Problems Problem Status Onset Rash and nonspecific skin eruption Acute
[2017-11-03] MEDS: FAMOTIDINE 20 MG/NACL 50 ML IV SCH (21:39)
[2017-11-04] MEDS: oxyCODONE IR 5 MG TAB PO SCH ×6 (02:10→21:30)
[2017-11-04] MEDS: oxyCODONE IR 5 MG TAB PO PRN ×4 (07:50→23:40)
[2017-11-04] MEDS: PANTOPRAZOLE SODIUM 40 MG TAB PO SCH (09:19)
[2017-11-04] MEDS: GABAPENTIN 300 MG CAP PO SCH ×3 (09:19→21:29)
[2017-11-04] MEDS: CETIRIZINE 10 MG TAB PO SCH (09:19)
[2017-11-04] MEDS: SENNOSIDES/DOCUSATE SODIUM TAB PO SCH ×2 (09:20→21:29)
[2017-11-04] MEDS: DIAZEPAM 2 MG TAB PO PRN ×3 (09:34→23:42)
[2017-11-04] MEDS: FAMOTIDINE 20 MG TAB PO SCH ×2 (11:14→21:30)
[2017-11-04] MEDS: FAMOTIDINE 20 MG/NACL 50 ML IV SCH (11:15)
[2017-11-04] MEDS ORDERED: NS 1,000 ML IV SCH (13:15)
--- NOTE | 2017-11-04 13:21 | HOSPPROG ---
Hospitalist Progress Note Assessment/Plan: Pleasant 52-year-old female with history of MTHFR and right hip dysplasia. She is s/p a right Derotational osteotomy. Hospitalist consult to assist with medical management. *Chronic pain with acute postop pain -resumed gabapentin -cont prn medications -is on a UNLOADING CHECKER, had increased pain due to working w PT and OT today *History of MTHFR -patient without any previous history of coagulopathy -she in on asa 81 mg daily -no complications postoperatively from her other surgeries. -Defer to primary team has for considerations of anticoagulation. *Urinary retention -resolved *rash -much improved *hyperkalemia -elevated today -will place on low K diet -give her a liter of saline and recheck in the a.m. *right hip dysplasia -pod #2 for derotational osteotomy *PPX - SCDs. as per primary team. encourage early mobilization vs consideration for ppx anticoagulation. *Plan: recheck K level in a.m, low K diet, give a liter of normal saline, encouraged ice to her right knee (this was causing pain today) Subjective: Sandra is c/o right knee pain after ambulating w PT. Objective: Vital Signs Temp Pulse Resp BP Pulse Ox 37.1 C 85 18 99/64 L 97 11/04/17 11:32 11/04/17 11:32 11/04/17 11:32 11/04/17 11:32 11/04/17 11:32 Laboratory Results 11/03/17 05:05 11/04/17 04:50 11/03/17 11/04/17 11/05/17 05:59 05:59 05:59 Intake Total 2300 1500 Output Total 1150 1750 Balance 1150 -250 PT 12.9 SEC (12.0-15.0) 11/02/17 12:25 INR 0.95 (0.83-1.16) 11/02/17 12:25 - Physical Exam Constitutional: no apparent distress, appears nourished, uncomfortable Eyes: PERRL Ears, Nose, Mouth, Throat: hearing normal Cardiovascular: regular rate and rhythym Respiratory: no respiratory distress Skin: warm, rash (resolving, almost completely gone from her abdomen, very light rash on her right thigh), other (right knee with some swelling, right upper leg are w swelling) Musculoskeletal: generalized weakness Neurologic: AAOx3 Psychiatric: interacting appropriately ICD10 Worksheet Patient Problems: Problems Problem Status Onset Rash and nonspecific skin eruption Acute - ICD10 Problem Qualifiers (1) Rash and nonspecific skin eruption
[2017-11-04] MEDS: ASPIRIN EC 81 MG TAB PO SCH (21:32)
[2017-11-05] MEDS: oxyCODONE IR 5 MG TAB PO SCH ×6 (02:33→21:27)
[2017-11-05] MEDS: oxyCODONE IR 5 MG TAB PO PRN ×3 (04:40→17:22)
--- NOTE | 2017-11-05 08:43 | HOSPPROG ---
Hospitalist Progress Note Assessment/Plan: [place] 52-year-old female with history of MTHFR and right hip dysplasia. She is s/p a right Derotational osteotomy. Hospitalist consult to assist with medical management. *Chronic pain with acute postop pain -resumed gabapentin -cont prn medications -doing very well this morning *History of MTHFR -patient without any previous history of coagulopathy -no complications postoperatively from her other surgeries. -Defer to primary team has for considerations of anticoagulation. *Urinary retention -resolved *rash -much improved *hyperkalemia -resolved w hydration. *right hip dysplasia -pod #3 for derotational osteotomy *PPX - SCDs. as per primary team. encourage early mobilization vs consideration for ppx anticoagulation. *Plan: ok to dc home per orthopedics Subjective: Sandra is feeling well today, has some pain, but is managing well. Objective: Vital Signs Temp Pulse Resp BP Pulse Ox 36.7 C 84 18 90/55 L 95 11/05/17 07:28 11/05/17 07:28 11/05/17 07:28 11/05/17 07:28 11/05/17 07:28 Laboratory Results 11/03/17 05:05 11/05/17 04:34 11/04/17 11/05/17 11/06/17 05:59 05:59 05:59 Intake Total 1500 1550 Output Total 1750 Balance -250 1550 PT 12.9 SEC (12.0-15.0) 11/02/17 12:25 INR 0.95 (0.83-1.16) 11/02/17 12:25 - Physical Exam Constitutional: uncomfortable Eyes: PERRL Ears, Nose, Mouth, Throat: hearing normal Respiratory: no respiratory distress Skin: rash (much improved, almost resolved) Musculoskeletal: generalized weakness Neurologic: AAOx3 Psychiatric: interacting appropriately ICD10 Worksheet Patient Problems: Problems Problem Status Onset Rash and nonspecific skin eruption Acute - ICD10 Problem Qualifiers (1) Rash and nonspecific skin eruption
[2017-11-05] MEDS: GABAPENTIN 300 MG CAP PO SCH ×3 (09:25→21:27)
[2017-11-05] MEDS: CETIRIZINE 10 MG TAB PO SCH (09:25)
[2017-11-05] MEDS: FAMOTIDINE 20 MG TAB PO SCH ×2 (09:25→20:36)
[2017-11-05] MEDS: ASPIRIN EC 81 MG TAB PO SCH (09:25)
[2017-11-05] MEDS: PANTOPRAZOLE SODIUM 40 MG TAB PO SCH (09:25)
[2017-11-05] MEDS: SENNOSIDES/DOCUSATE SODIUM TAB PO SCH ×2 (09:26→20:36)
[2017-11-05] MEDS: DIAZEPAM 2 MG TAB PO PRN ×2 (15:24→21:26)
--- NOTE | 2017-11-05 19:05 | SOAPPROG ---
SOAP Progress Note Assessment/Plan: Assessment: Plan: 11/05/17 19:04 Saw patient yesterday 11/04, doing well, Nv intact, using SCD. discussed swelling in thigh from bleeding and isometric quad work. Discussed surgery, next few days and discharge plans. Dr Geller Objective: Vital Signs Temp Pulse Resp BP Pulse Ox 37.2 C 100 16 103/71 94 11/05/17 15:23 11/05/17 15:23 11/05/17 15:23 11/05/17 15:23 11/05/17 15:23 Laboratory Results 11/03/17 05:05 11/05/17 04:34 11/04/17 11/05/17 11/06/17 05:59 05:59 05:59 Intake Total 1500 1550 1000 Output Total 1750 Balance -250 1550 1000 PT 12.9 SEC (12.0-15.0) 11/02/17 12:25 INR 0.95 (0.83-1.16) 11/02/17 12:25 ICD10 Worksheet Patient Problems: Problems Problem Status Onset Rash and nonspecific skin eruption Acute
--- NOTE | 2017-11-05 21:24 | SOAPPROG ---
SOAP Progress Note Assessment/Plan: Assessment: 52 yo F POD#3 s/p R DFO, doing well postoperatively. Plan: XR reviewed and cleared by Dr. Geller Continue PO pain control PT/OT to clear stairs (has 1-2 steps into her home) Likely plan for d/c tomorrow if does well with PT on steps and pain remains well controlled 11/05/17 21:21 Subjective: Reports pain control has improved greatly today (off [employer]), feels she is somewhat turning a corner. Mobilized well with PT, still needs to work on steps as she has 1-2 into her home. Tolerating PO well. Some subjective numbness in her R foot toes, otherwise no parasthesias or weakness. Objective: Vital Signs Temp Pulse Resp BP Pulse Ox 36.8 C 83 16 88/52 L 92 11/05/17 20:00 11/05/17 20:00 11/05/17 20:00 11/05/17 20:00 11/05/17 20:00 Laboratory Results 11/03/17 05:05 11/05/17 04:34 11/04/17 11/05/17 11/06/17 05:59 05:59 05:59 Intake Total 1500 1550 1000 Output Total 1750 Balance -250 1550 1000 PT 12.9 SEC (12.0-15.0) 11/02/17 12:25 INR 0.95 (0.83-1.16) 11/02/17 12:25 PE: R thigh dressings c/d/i Appropriate post-operative edema/ecchymosis 5/5 EHL, TA, GSC SILT throughout with subjective decrease in her toes 5/10, intact LFCN Palpable DP pulse, BCR < 2 sec ICD10 Worksheet Patient Problems: Problems Problem Status Onset Rash and nonspecific skin eruption Acute
[2017-11-06] MEDS: oxyCODONE IR 5 MG TAB PO SCH ×3 (02:59→09:48)
[2017-11-06] MEDS: DIAZEPAM 2 MG TAB PO PRN ×2 (03:16→09:47)
[2017-11-06 07:35] VITALS: BP 116/63
[2017-11-06] MEDS: FAMOTIDINE 20 MG TAB PO SCH (08:26)
[2017-11-06] MEDS: PANTOPRAZOLE SODIUM 40 MG TAB PO SCH (08:26)
[2017-11-06] MEDS: CETIRIZINE 10 MG TAB PO SCH (08:26)
[2017-11-06] MEDS: SENNOSIDES/DOCUSATE SODIUM TAB PO SCH (08:26)
[2017-11-06] MEDS: ASPIRIN EC 81 MG TAB PO SCH (08:26)
[2017-11-06] MEDS: GABAPENTIN 300 MG CAP PO SCH (08:26)
[2017-11-06] MEDS: oxyCODONE IR 5 MG TAB PO PRN ×2 (08:26→12:37)
--- NOTE | 2017-11-06 10:22 | ASMTLACE ---
LACE Length of stay for Answers: 4-6 days current admission Acuity / Level of Answers: Yes Care: Did the patient have an inpatient admission? Comorbidities - select Answers: Opioid dependence all that apply / Chronic pain # of Emergency department Answers: 0 visits in the last 6 months Score: 11 Date Signed: 11/06/2017 10:21 AM Electronically Signed By:DELIA Arteaga
--- NOTE | 2017-11-06 13:21 | HOSPPROG ---
Hospitalist Progress Note Assessment/Plan: Pleasant 52-year-old female with history of MTHFR and right hip dysplasia. She is s/p a right Derotational osteotomy. Hospitalist consult to assist with medical management. First encounter, chart reviewed. *Chronic pain with acute postop pain -gabapentin -cont prn medications -doing very well this morning -good pain control *History of MTHFR -patient without any previous history of coagulopathy -no complications postoperatively from her other surgeries. -Defer to primary team has for considerations of anticoagulation. *Urinary retention -resolved, postop *rash -much improved -possibly related to iodine *hyperkalemia -resolved w hydration. *right hip dysplasia -pod #4 for derotational osteotomy *PPX - SCDs. as per primary team. encourage early mobilization vs consideration for ppx anticoagulation. *Plan: ok to dc home Subjective: Up in chair. Feeling much better. Pain controlled. Objective: Vital Signs Temp Pulse Resp BP Pulse Ox 37.1 C 93 14 116/63 97 11/06/17 07:34 11/06/17 07:34 11/06/17 07:34 11/06/17 07:34 11/06/17 07:34 Laboratory Results 11/03/17 05:05 11/05/17 04:34 11/05/17 11/06/17 11/07/17 05:59 05:59 05:59 Intake Total 1550 1750 Balance 1550 1750 PT 12.9 SEC (12.0-15.0) 11/02/17 12:25 INR 0.95 (0.83-1.16) 11/02/17 12:25 - Physical Exam Constitutional: no apparent distress, appears nourished, not in pain Eyes: PERRL, anicteric sclera, EOMI Ears, Nose, Mouth, Throat: moist mucous membranes, hearing normal, ears appear normal Cardiovascular: No JVD, No tachycardia, No edema Respiratory: no respiratory distress, no rales or rhonchi, reduced air movement Gastrointestinal: normoactive bowel sounds, No tenderness, No ascites Skin: warm, normal color, rash, No mottled Musculoskeletal: no joint effusions, pain with ROM, muscular tenderness, abnormal gait, generalized weakness Neurologic: AAOx3 Psychiatric: interacting appropriately, not anxious, not encephalopathic, thought process linear ICD10 Worksheet Patient Problems: Problems Problem Status Onset Rash and nonspecific skin eruption Acute
== END 2017-11-06 12:53 | disposition home or self-care (01) | DRG 482 ==
LOC: F3N 09:16 → EDSTATUS 14:00 → F3N 17:35
PROVIDERS: ADMIT Orthopaedic Surgery Sports Medicine; ATTEND Orthopaedic Surgery Sports Medicine
DX: M25.851 Other specified joint disorders, right hip (principal); Q65.89 Other specified congenital deformities of hip
CPT/HCPCS: 97110-GP; 97116-GP; 97161-GP; 97165-GO; 97530-GO; 97530-GP; 97535-GO; C1713; J0171; J0690; J1100; J1170; J2250; J2274; J2405; J2704; J3010

== ENCOUNTER 2017-11-08 12:54 | Emergency (ER) | payer OTHER ==
[2017-11-08] MEDS ORDERED: HYDROmorphONE/DILAUDID 2 MG/ML INJ IVP ONE (14:01)
[2017-11-08] MEDS ORDERED: NS 1,000 ML IV ONE (14:01)
--- NOTE | 2017-11-08 14:06 | EDPHY ---
H & P Smoking Status: Never smoked Time Seen by Provider: 11/08/17 13:48 HPI/ROS: Chief complaint. Right hip and leg pain. HPI. Patient 52-year-old female who had a repair of the right labrum endoscopically on October 26. She went home and then on 11/02 she had D of 0 surgery for right hip dysplasia and bilateral femoral acetabular impingement. Last night the patient got up and was using her walker. She took about 2 steps and lost her balance and fell landing on her bottom. She has pain right hip and right thigh. On presentation at triage she is found to have a temperature of 38.3 degrees. The patient is unaware of any fever. She has no cough or shortness of breath. She has urinary hesitancy but not dysuria. She has not noticed any redness to the skin around her surgical incisions. No abdominal pain. ROS 10 systems were reviewed and negative with the exception of the elements mentioned in the history of present illness (Luis Alberto Romano) Past Medical/Surgical History: Hysterectomy, recent right hip surgery (Luis Alberto Romano) Social History: , nonsmoker, no alcohol (Luis Alberto Romano) Physical Exam: General Appearance: Alert well-developed female moderate distress temp 38.3 degrees. Initial O2 saturation on room air was 74% however on recheck on room air is 99% Eyes: Pupils equal and round no pallor or injection. ENT, pharynx is injected somewhat of a fiery red rash on the posterior pharynx. However patient does not complain sore throat Respiratory: There are no retractions, lungs are clear to auscultation. Cardiovascular: Regular rate and rhythm. Gastrointestinal: Abdomen is soft and nontender, no masses, bowel sounds normal. Neurological: Awake and alert, sensory and motor exams grossly normal. Skin: Skin around surgical incisions shows bruising but no evidence for erythema. There is a resolving petechial rash on her right lower extremity that apparently has been there for about 1 week Musculoskeletal: Neck is supple nontender. Extremities symmetrical, full range of motion. Psychiatric: Patient is oriented X 3, there is no agitation. (Luis Alberto Romano) Constitutional: Initial Vital Signs Temperature (C) 38.3 C 11/08/17 13:02 Heart Rate 99 11/08/17 13:02 Respiratory Rate 18 11/08/17 13:02 Blood Pressure 156/98 H 11/08/17 13:02 O2 Sat (%) 74 L 11/08/17 13:02 O2 Delivery Mode Room Air Allergies/Adverse Reactions: chlorhexidine Allergy (Verified 11/08/17 12:58) povidone-iodine [From Betadine] Allergy (Verified 11/08/17 12:58) soap [From Betadine] Allergy (Verified 11/08/17 12:58) Home Medications: Medication Instructions Recorded Gabapentin [Neurontin 300 MG (*)] 900 mg PO TID 10/26/17 Loratadine/Pseudoephedrine 1 each PO DAILY 10/26/17 [Claritin-D 24 Hour Tablet] Acetaminophen [Tylenol 325mg (*)] 325 mg PO Q6HRS PRN tab 11/06/17 Aspirin EC [Aspirin EC 81 mg (*)] 81 mg PO DAILY tab 11/06/17 Diazepam [Valium 2 MG (*)] 5 mg PO Q6HRS PRN 7 Days #20 tab 11/06/17 oxyCODONE IR [Oxycodone Ir (*)] 10 mg PO Q4HRS 14 Days #90 tab 11/06/17 Medical Decision Making - Diagnostics Imaging Results: Imaging Impressions Femur X-Ray 11/08/17 14:02 Impression: 1. Intramedullary nailing of a transverse proximal right femoral fracture, stable alignment from prior study.. Hip X-Ray 11/08/17 14:02 Impression: Negative radiographs of the right hip. Prior intramedullary nail placement right femur. Chest X-Ray 11/08/17 14:03 Impression: Negative portable chest. Chest x-ray is normal without evidence of pneumonia X-ray right hip and femur shows fracture in the proximal femur with a matthias around it. (Luis Alberto Romano) Procedures: IV normal saline. Sepsis workup Dilaudid for pain (Luis Alberto Romano) ED Course/Re-evaluation: I consulted and discussed with case with Dr. Evelina horn who sees the patient in the ED. He tells me that this is a fracture that he made in the OR so he could rotate the patient's femur and this is not a new fracture from her fall. He also tells me that he believes fever may well be consistent with hematoma breakdown and postop inflammation. He is comfortable with the patient going home unless we find other evidence of infection. Patient initially had pulse oximeter 74% at triage however has 99% saturation at bedside and she has no symptoms of cough or chest discomfort or shortness of breath. We will repeat this. Sepsis workup is being performed (Luis Alberto Romano) Other Provider: Care assumed from Dr. Romano at 3:30 p.m.. Plan for checking labs urinalysis, discharge if no lab evidence of infection. The patient was seen by her orthopedist who personally saw the patient, Dr. Romano told me his impression is that she is stable for discharge from a post surgical perspective. Her orthopedist is specifically not concerned for postoperative problem including infection. Patient tells me she continually had low oxygen saturations from narcotics, while in the hospital. She was continually triggering the oxygen saturation alarm from her hospital room. She did take 10 mg oxycodone just before arrival and had a low oxygen saturation at triage, but she has been above 90% ever since. She does not have chest pain or shortness of breath. Of note she does have a sister who had DVT and pulmonary embolism and is on chronic anticoagulation, but her sister has factor 5 Leiden and another inherited clotting disorder and the patient got tested and is known to not have any known genetic pro-coagulant disorder. She currently does not have any chest pain or shortness of breath. I think most reasonable explanation for the triage saturation is that she was hypoventilatory from narcotics including opioids and benzodiazepines, and the patient agrees that this is most likely the case. She has had a saturation in the mid 90s on room air ever since she has arrived in her room, no chest pain or shortness of breath, and pulmonary embolism appears unlikely. I do not think it is clinically indicated to perform CT angiography of her chest at this time in the patient and her state agreement with that plan. 1622: Patient requesting additional oral oxycodone 10 mg. Urinalysis does not show infection. Stable for discharge. (Kevin Everett) Care Turn Over: Dr. Everett at 1520 (Luis Alberto Romano) - Data Points Laboratory Results: Laboratory Results 11/08/17 15:00 11/08/17 15:00 11/08/17 11/08/17 11/08/17 15:40 15:00 15:00 WBC 5.49 10^3/uL 10^3/uL (3.80-9.50) RBC 3.91 10^6/uL L 10^6/uL (4.18-5.33) Hgb 11.9 g/dL L g/dL (12.6-16.3) Hct 35.4 % L % (38.0-47.0) MCV 90.5 fL fL (81.5-99.8) MCH 30.4 pg pg (27.9-34.1) MCHC 33.6 g/dL g/dL (32.4-36.7) RDW 12.8 % % (11.5-15.2) Plt Count 424 10^3/uL H 10^3/uL (150-400) MPV 9.0 fL fL (8.7-11.7) Neut % (Auto) 69.0 % % (39.3-74.2) Lymph % (Auto) 13.7 % L % (15.0-45.0) [place] % (Auto) 13.5 % H % (4.5-13.0) Eos % (Auto) 2.7 % % (0.6-7.6) Baso % (Auto) 0.7 % % (0.3-1.7) Nucleat RBC Rel Count 0.0 % % (0.0-0.2) Absolute Neuts (auto) 3.79 10^3/uL 10^3/uL (1.70-6.50) Absolute Lymphs (auto) 0.75 10^3/uL L 10^3/uL (1.00-3.00) Absolute Monos (auto) 0.74 10^3/uL 10^3/uL (0.30-0.80) Absolute Eos (auto) 0.15 10^3/uL 10^3/uL (0.03-0.40) Absolute Basos (auto) 0.04 10^3/uL 10^3/uL (0.02-0.10) Absolute Nucleated RBC 0.00 10^3/uL 10^3/uL (0-0.01) Immature Gran % 0.4 % % (0.0-1.1) Immature Gran # 0.02 10^3/uL 10^3/uL (0.00-0.10) PT 13.4 SEC SEC (12.0-15.0) INR 1.00 (0.83-1.16) APTT 30.9 SEC SEC (23.0-38.0) VBG Lactic Acid Sodium Potassium Chloride Carbon Dioxide Anion Gap BUN Creatinine Estimated GFR Glucose Calcium Total Bilirubin Urine Color YELLOW Urine Appearance CLEAR Urine pH 8.0 H (5.0-7.5) Ur Specific [place] 1.011 (1.002-1.030) Urine Protein NEGATIVE (NEGATIVE) Urine Ketones NEGATIVE (NEGATIVE) Urine Blood NEGATIVE (NEGATIVE) Urine Nitrate NEGATIVE (NEGATIVE) Urine Bilirubin NEGATIVE (NEGATIVE) Urine Urobilinogen NEGATIVE EU EU (0.2-1.0) Ur Leukocyte Esterase NEGATIVE (NEGATIVE) Urine RBC 1-3 /hpf /hpf (0-3) Urine WBC 3-5 /hpf H /hpf (0-3) Ur Epithelial Cells TRACE /lpf /lpf (NONE-1+) Urine Mucus TRACE /lpf /lpf (NONE-1+) Urine Glucose NEGATIVE (NEGATIVE) 11/08/17 11/08/17 15:00 15:00 WBC RBC Hgb Hct MCV MCH MCHC RDW Plt Count MPV Neut % (Auto) Lymph % (Auto) [place] % (Auto) Eos % (Auto) Baso % (Auto) Nucleat RBC Rel Count Absolute Neuts (auto) Absolute Lymphs (auto) Absolute Monos (auto) Absolute Eos (auto) Absolute Basos (auto) Absolute Nucleated RBC Immature Gran % Immature Gran # PT INR APTT VBG Lactic Acid 1.7 mmol/L mmol/L (0.7-2.1) Sodium 134 mEq/L L mEq/L (135-145) Potassium 4.0 mEq/L mEq/L (3.3-5.0) Chloride 100 mEq/L mEq/L (97-110) Carbon Dioxide 22 mEq/l mEq/l (22-31) Anion Gap 12 mEq/L mEq/L (8-16) BUN 7 mg/dL mg/dL (7-23) Creatinine 0.8 mg/dL mg/dL (0.6-1.0) Estimated GFR > 60 Glucose 86 mg/dL mg/dL (70-100) Calcium 8.9 mg/dL mg/dL (8.5-10.4) Total Bilirubin 0.7 mg/dL mg/dL (0.1-1.4) Urine Color Urine Appearance Urine pH Ur Specific [place] Urine Protein Urine Ketones Urine Blood Urine Nitrate Urine Bilirubin Urine Urobilinogen Ur Leukocyte Esterase Urine RBC Urine WBC Ur Epithelial Cells Urine Mucus Urine Glucose Medications Given: Discontinued Medications Hydromorphone HCl (Dilaudid) 1 mg IVP EDNOW ONE Stop: 11/08/17 14:02 Last Admin: 11/08/17 14:31 Dose: 1 mg Sodium Chloride (Ns) 1,000 mls @ 0 mls/hr IV EDNOW ONE; Wide Open PRN Reason: Protocol Stop: 11/08/17 14:02 Last Admin: 11/08/17 14:31 Dose: 1,000 mls Oxycodone HCl (Oxycodone Ir) 10 mg PO EDNOW ONE Stop: 11/08/17 16:23 Last Admin: 11/08/17 16:25 Dose: 10 mg Departure - Departure Disposition: Home, Routine, Self-Care Clinical Impression: Contusion of right hip, initial encounter Fall Qualifiers: Encounter type: initial encounter Qualified Code(s): W19.XXXA - Unspecified fall, initial encounter Condition: Good Instructions: Pain Management (ED) Additional Instructions: Continue walker use to prevent falls. Continue regular medications. Follow up with Dr. Evelina horn as instructed by him Referrals: Clint Geller MD [Medical Doctor] - As per Instructions
[2017-11-08 15:21] LABS: PLATELET COUNT 424 10^3/uL (150-400)
[2017-11-08 15:29] LABS: PROTIME(PATIENT) 13.4 SEC (12.0-15.0)
[2017-11-08] MEDS ORDERED: oxyCODONE IR 5 MG TAB PO ONE (16:22)
[2017-11-08 16:30] VITALS: BP 130/78
== END 2017-11-08 16:39 | disposition home or self-care (01) ==
DX: S70.01XA Contusion of right hip, initial encounter (principal); E86.9 Volume depletion, unspecified; W19.XXXA Unspecified fall, initial encounter
CPT/HCPCS: J1170